=== PATIENT | male | born 2000 | race Caucasian/White ===

== ENCOUNTER 2021-11-04 11:10 | Emergency (ER) | payer SELFPAY ==
[2021-11-04 11:12] VITALS: BP 139/84; PULSE 75; RESP 18; TEMP 36.8; O2SAT 99; BMI 21.9
--- NOTE | 2021-11-04 11:16 | XR_ITS ---
PROCEDURE INFORMATION: Exam: XR Right Hand Exam date and time: 11/04/2021 11:21 AM Age: 20 years old Clinical indication: Injury or trauma; Other: Punched a wall and boxer stand; Blunt trauma (contusions or hematomas); Hand; Right; Injury date: 11/03/21; Additional info: Hand injury, hit a brick wall and boxer stand TECHNIQUE: Imaging protocol: XR Right hand. Views: 3 or more views. COMPARISON: No relevant prior studies available. FINDINGS: Bones/joints: Normal. Soft tissues: Normal. IMPRESSION: No acute findings.
[2021-11-04 11:17] VITALS: BP 139/84; PULSE 68; O2SAT 98
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
--- NOTE | 2021-11-04 12:00 | PC.NURSE ---
ED MD at for update on POC
[2021-11-04 12:04] VITALS: BP 111/71; PULSE 81; RESP 19; TEMP 36.7; O2SAT 98
== END 2021-11-04 12:16 | disposition home or self-care (01) ==
PROVIDERS: Emergency Provider Emergency Medicine
DX: S60.221A Contusion of right hand, initial encounter (principal); Z79.899 Other long term (current) drug therapy; W22.8XXA Striking against or struck by other objects, initial encounter
CPT/HCPCS: 73130; 99283

== ENCOUNTER 2021-11-30 20:24 | Emergency (ER) | payer SELFPAY ==
[2021-11-30 20:29] VITALS: BP 115/74; PULSE 109; RESP 18; TEMP 36.4; O2SAT 99; BMI 22.7
[2021-11-30 21:14] LABS: Microscopic, Urine URINE MICROSCOPIC (MICROSCOPIC)
[2021-11-30 21:21] LABS: Basophils # 0.1 K/mm3 (0-0.2); Basophils % 0.5 % (0.1-2.0); Eosinophils # 0.3 K/mm3 (0.0-0.4); Eosinophils % 3.1 % (0.1-12.0); Hematocrit 44.8 % (42.0-52.0); Hemoglobin 15.2 g/dL (14.1-18.0); Lymphocytes % 20.7 % (10-50); Mean Corpuscular Hemoglobin 30.6 pg (27.0-31.2); Mean Platelet Volume 8.1 fl (7.4-10.4); Monocytes # 0.5 K/mm3 (0.1-1.0); Monocytes % 4.6 % (1.7-9.3); Neutrophils # 6.8 K/mm3 (1.8-7.8); Platelet Count 180 K/mm3 (142-424); Red Blood Count 4.98 M/mm3 (4.60-6.20); Red Cell Distribution Width 12.9 % (11.5-17.5); White Blood Count 9.6 K/mm3 (4.8-10.8)
[2021-11-30 21:25] LABS: POC Glucose,Bedside 104 (70-110)
--- NOTE | 2021-11-30 21:31 | HMH.EDAMS ---
ED Disposition Clinical Impression: Medication adverse effect Qualifiers: Encounter type: initial encounter Qualified Code(s): T50.905A - Adverse effect of unspecified drugs, medicaments and biological substances, initial encounter Disposition: Home, Self-Care Condition on Discharge: Good Instructions: DI for Safely Taking and Storing Medications -- Adults Referrals: Provider,Referral, [Primary Care Provider] - - Critical Care Critical Care Time: No Attestation: On 11/30/21, the high probability of a clinically significant, sudden or life threatening deterioration of the following system(s) required my full and direct attention, intervention and personal management. The time I documented below is in addition to time spent performing reported procedures but includes the following listed in this critical care notation. Medical Decision Making - Medical Records Medical records reviewed: Yes: I reviewed the patient's medical records. - Eh Inquiry Pt receiving controlled substance: No Vital Signs: 11/30/21 20:29 Temperature 97.6 F Temperature Source Oral Pulse Rate [Apical] 109 H Respiratory Rate 18 Blood Pressure [Right Arm] 115/74 Blood Pressure Mean [Right Arm] 87 Blood Pressure Source [Right Arm] Automatic Cuff Blood Pressure Position [Right Arm] Sitting 02 Sat by Pulse Oximetry 99 Oxygen Delivery Method Room Air - Lab Data Lab results reviewed: Yes: I reviewed the patient's lab results. Lab Results 11/30/21 21:15: WBC 9.6, RBC 4.98, Hgb 15.2, Hct 44.8, MCV 90.0, MCH 30.6, MCHC 34.0, RDW 12.9, Plt Count 180, MPV 8.1, Neut % (Auto) 71.0, Lymph % (Auto) 20.7, [place] % (Auto) 4.6, Eos % (Auto) 3.1, Baso % (Auto) 0.5, Neut # (Auto) 6.8, Lymph # (Auto) 2.0, [place] # (Auto) 0.5, Eos # (Auto) 0.3, Baso # (Auto) 0.1 11/30/21 21:15: Sodium 135 L, Potassium 3.8, Chloride 100, Carbon Dioxide 30, Anion Gap 8.8, BUN 11, Creatinine 0.90, Estimated Creat Clear 121, Estimated GFR 107, Est GFR ( Amer) 129, Glucose 116 H, Calcium 9.0, Total Bilirubin 0.3, AST 46, ALT 31, Alkaline Phosphatase 57, Troponin I < 0.01, C-Reactive Protein < 0.3, Total Protein 6.6, Albumin 4.3, Globulin 2.3, Albumin/Globulin Ratio 1.9 H, Salicylates < 1.0 L, Acetaminophen < 10 L 11/30/21 21:18: POC Glucose 104 Result diagrams: 11/30/21 21:15 11/30/21 21:15 Orders (Tests/Meds): ORDERS Category Date Time Status CT head/brain wo con Stat Cat Scan 11/30/21 20:47 Ordered Acetaminophen Stat Lab 11/30/21 21:15 Results C-Reactive Protein Stat Lab 11/30/21 21:15 Results Complete Blood Count Auto Diff Stat Lab 11/30/21 21:15 Results Comprehensive Metabolic Panel Stat Lab 11/30/21 21:15 Results Drug Screen,Urine Stat Lab 11/30/21 20:20 Received Erythrocyte Sedimentation Rate Stat Lab 11/30/21 21:15 Results Procalcitonin Stat Lab 11/30/21 21:15 Results Salicylate Stat Lab 11/30/21 21:15 Results Troponin I Q3H Lab 12/01/21 00:15 Ordered Troponin I Q3H Lab 12/01/21 03:15 Ordered Troponin I Stat Lab 11/30/21 21:15 Results Urinalysis and Microscopic Stat Lab 11/30/21 20:20 Received Medical Decision Narrative: pt with acute medication reaction - asked pt to call pcp for follow up Altered Mental Status HPI - General Chief Complaint: Altered Mental Status Stated Complaint: feels loopy Time Seen by Provider: 11/30/21 21:00 Mode of Arrival: EMS Source of Information: Patient, EMS, Medical Record Limitations: Altered Mental Status Description of Symptoms (Recalled from ER Triage Doc. by RN): Patient left [facility]. Was started on 3 new psych medications and has had c/o dizziness and not feeling like himself since 4 pm. Denies any drug use or injury. - History of Present Illness HPI narrative: recent admit at [facility] and on meds and felt funny after taking meds complaint: other (medication side effect ) Onset (ago): day(s) Severity: moderate Context: [facility]
[2021-11-30 21:33] LABS: Alanine Aminotransferase 31 U/L (12-78); Albumin Level 4.3 g/dl (3.5-5.0); Albumin/Globulin Ratio 1.9 (1.1-1.8); Alkaline Phosphatase 57 U/L (38-126); Anion Gap 8.8 mEq/L (5-15); Aspartate Amino Transferase 46 U/L (17-59); Bilirubin,Total 0.3 mg/dl (0.2-1.3); Blood Urea Nitrogen 11 mg/dl (9-20); Carbon Dioxide 30 mmol/L (22.0-30.0); Chloride 100 mmol/L (98-107); Creatinine Clearance Estimated 121 mL/min (50-200); Estimated Glomerular Filt Rate 107 ml/min (>60); GFR (African American) 129 ML/MIN (>60); Globulin 2.3 g/dL (1.3-3.2); Glucose 116 mg/dl (74-100); Potassium 3.8 mmoL/L (3.5-5.1); Sodium 135 mmol/L (136-145); Total Protein,Serum 6.6 g/dl (6.3-8.2)
[2021-11-30 21:38] LABS: Acetaminophen < 10 ug/ml (10-30); Salicylate < 1.0 mg/dL (2.0-20.0)
[2021-11-30 21:38] LABS: Appearance,Urine CLEAR (Clear); Bilirubin,Urine Negative (Negative); Blood, Urine Negative (Negative); Color,Urine YELLOW (Yellow); Glucose,Urine (UA) Negative (Negative); Ketones,Urine Negative (Negative); Leukocyte Esterase,Urine TRACE (Negative); Nitrate,Urine Negative (Negative); Protein,Urine Negative (Negative); Urobilinogen,Urine 0.2 EU/dl (0.2)
[2021-11-30 21:43] LABS: C-Reactive Protein < 0.3 mg/L (0-4)
[2021-11-30 21:48] LABS: Troponin I < 0.01 ng/ml (0.00-0.034)
[2021-11-30 21:49] LABS: Amphetamine/Metha Screen,Urine Negative ng/ml (<1000)
[2021-11-30 21:50] LABS: Barbiturates Screen,Urine Negative ng/ml (<200); Benzodiazepines Screen,Urine Negative ng/ml (<200)
[2021-11-30 21:51] LABS: Cannabinoid Screen,Urine Negative ng/ml (<50)
[2021-11-30 21:52] LABS: Cocaine Screen,Urine Negative ng/ml (<300); Methadone Screen,Urine Negative ng/ml (<300)
[2021-11-30 21:53] LABS: Opiate Screen,Urine Negative ng/ml (<300)
[2021-11-30 21:54] VITALS: BP 115/72; PULSE 80; RESP 18; TEMP 36.8; O2SAT 99
[2021-11-30 21:54] LABS: Phencyclidine Screen,Urine Negative ng/ml (<25)
[2021-11-30 21:55] LABS: Procalcitonin < 0.030 ng/mL (0.0-2.0)
[2021-11-30 22:02] LABS: Erythrocyte Sedimentation Rate 3 mm/hr (0-15)
[2021-11-30 22:13] LABS: Bacteria,Urine Trace /lpf; RBC,Urine Occasional #/hpf (0-3)
--- NOTE | 2021-12-01 21:08 | ECG_ITS ---
APPROVED REPORT Exam: Resting ECG HR:95 bpm ECG Measurements Heart Rate 95 AXES ID 157 P 76 QRSd 89 QRS 101 QT 344 T 27 QTc 397 Conclusion SINUS RHYTHM WITH SINUS ARRHYTHMIA RIGHT AXIS DEVIATION [QRS AXIS > 100] NONSPECIFIC ST ELEVATION [0.05+ mV ST ELEVATION] ABNORMAL ECG UNCONFIRMED REPORT Electronically signed by : Cody Weaver MD 12/02/2021 20:14:55
== END 2021-11-30 21:56 | disposition home or self-care (01) ==
PROVIDERS: Emergency Provider Emergency Medicine
DX: R42 Dizziness and giddiness (principal); F41.9 Anxiety disorder, unspecified; T43.4X5A Adverse effect of butyrophenone and thiothixene neuroleptics, initial encounter; T43.595A Adverse effect of other antipsychotics and neuroleptics, initial encounter; T43.505A Adverse effect of unspecified antipsychotics and neuroleptics, initial encounter
CPT/HCPCS: 80053; 80305; 80329; 81001; 82962; 84145; 84484; 85025; 85651; 86140; 93005; 99284